=== PATIENT | female | born 1990 | race African-American/Black ===

== ENCOUNTER 2017-11-16 22:56 | Emergency (ER) | payer OTHER ==
[~2017-11-16] VITALS: Ht 160 cm; Wt 67.1 kg
[2017-11-16] MEDS ORDERED: ACCUNEB SO1.25 MG/1 (23:02)
[2017-11-17] MEDS ORDERED: PROMETHAZINE/C118 ML PO (00:36)
[2017-11-17] MEDS ORDERED: OSELB75 PO (00:36)
[2017-11-17] MEDS ORDERED: ZOFRAN ODT4 MG PO (00:36)
[2017-11-17] MEDS ORDERED: MUCINEX DM ER1 EACH PO (00:36)
== END 2017-11-17 00:56 | disposition home or self-care (01) ==
LOC: ER 22:56
DX: R51 Headache (principal); J45.909 Unspecified asthma, uncomplicated

== ENCOUNTER 2019-12-12 08:11 | Emergency (ER) | payer BC, OTHER ==
[~2019-12-12] VITALS: Ht 162.6 cm; Wt 68.0 kg
[~2019-12-12 08:11] MED LIST: ACCUNEB SO1.25 MG/1; MUCINEX DM ER1 EACH PO; OSELB75 PO; PROMETHAZINE/C118 ML PO; ZOFRAN ODT4 MG PO
[2019-12-12 09:42] VITALS: BP 110/70
== END 2019-12-12 09:47 | disposition home or self-care (01) ==
LOC: ER 08:11
DX: J06.9 Acute upper respiratory infection, unspecified (principal); R60.9 Edema, unspecified; J45.909 Unspecified asthma, uncomplicated

== ENCOUNTER 2020-01-12 17:40 | Emergency (ER) | payer BC, OTHER ==
[~2020-01-12] VITALS: Ht 160 cm; Wt 69.4 kg
[2020-01-12 18:30] LABS: ABSOLUTE NEUTROPHILS 2.4 thou/uL (1.4-8.2); BASOPHILS 0.6 % (0.0-2.0); EOSINOPHILS 3.7 % (0.0-3.0); HEMATOCRIT 38.7 % (37.0-47.0); HEMOGLOBIN 12.5 gm/dL (12.0-15.0); LYMPHOCYTES 49.8 % (24.0-44.0); MCH 27.5 pg (26.0-34.0); MCHC 32.3 g/dL (28.0-37.0); MCV 85.1 fL (80.0-100.0); MONOCYTES 6.3 % (1.0-8.0); PLATELET COUNT 209 thou/uL (150-400); POLYS 39.6 % (36.0-66.0); RBC 4.55 mil/uL (4.20-5.00); RDW 14.3 % (10.5-14.5); WBC 6.2 thou/uL (4.0-11.0)
[2020-01-12 18:36] LABS: CALCIUM 9.1 mg/dL (8.5-10.1); CREATININE 0.7 mg/dL (0.6-1.0); POTASSIUM 3.6 mmol/L (3.5-5.1)
[2020-01-12 18:42] LABS: ALBUMIN 3.9 g/dL (3.4-5.0); TOTAL BILIRUBIN 0.2 mg/dL (<0.1-1.0); TOTAL PROTEIN 7.6 g/dL (6.4-8.2)
[2020-01-12 18:49] LABS: URINE BILIRUBIN NEGATIVE (Negative); URINE BLOOD NEGATIVE (Negative); URINE CLARITY CLEAR; URINE COLOR YELLOW; URINE GLUCOSE-RANDOM* NEGATIVE (Negative); URINE KETONES NEGATIVE (Negative); URINE LEUKOCYTES-REFLEX 1+ (Negative); URINE NITRITE-REFLEX NEGATIVE (Negative); URINE PROTEIN (DIPSTICK) NEGATIVE (Negative); URINE SPECIFIC GRAVITY <= 1.005 (1.005-1.035); URINE UROBILINOGEN 0.2 E.U./dl (0.2-1.0)
[2020-01-12 18:52] LABS: BACTERIA-REFLEX None Seen /HPF (None Seen); CRYSTALS None Seen /LPF (None Seen); SQUAMOUS >10 Many /LPF (0-3); URINE RBC None Seen /HPF (0-2); URINE WBC-REFLEX 0-5 Rare /HPF (0-5)
[2020-01-12] MEDS ORDERED: PROAIR HFA8.5 GM INH (19:25)
[2020-01-12] MEDS ORDERED: PREDNISONE 20 M20 MG PO (19:25)
[2020-01-12 19:44] VITALS: BP 124/71
== END 2020-01-12 19:40 | disposition home or self-care (01) ==
LOC: ER 17:40
PROVIDERS: Nurse Practitioner
DX: J45.901 Unspecified asthma with (acute) exacerbation (principal)